=== PATIENT | male | born 1990 | race Caucasian/White ===

== ENCOUNTER 2018-08-23 12:12 | Emergency (ER) | payer BC, OTHER ==
[~2018-08-23] VITALS: Ht 180.3 cm; Wt 65.8 kg
[2018-08-23 12:33] VITALS: BP 145/82
[2018-08-23] MEDS ORDERED: LIDOCAINE 1%-EPI 1:100,000 20 ML VIAL ONE (12:39)
[2018-08-23] MEDS ORDERED: TDAP [DIPH/PERTUSSIS/TET] 0.5 ML VIAL IM ONE ×2 (13:00→13:16)
[2018-08-23] MEDS ORDERED: LIDOCAINE 1%-EPI 1:100,000 20 ML VIAL TP ONE (13:00)
== END 2018-08-23 13:25 | disposition home or self-care (01) ==
LOC: ER 12:12
DX: S01.81XA Laceration without foreign body of other part of head, initial encounter (principal); W22.8XXA Striking against or struck by other objects, initial encounter; Y93.89 Activity, other specified; Y92.89 Other specified places as the place of occurrence of the external cause; Y99.8 Other external cause status
CPT/HCPCS: 12011; 90471; 90715; 99283; A6402; J3490

== ENCOUNTER 2018-08-31 12:50 | Emergency (ER) | payer OTHER ==
[~2018-08-31] VITALS: Ht 180.3 cm; Wt 65.8 kg
[2018-08-31 13:20] VITALS: BP 126/80
== END 2018-08-31 13:59 | disposition home or self-care (01) ==
LOC: ER 12:50
DX: S01.81XD Laceration without foreign body of other part of head, subsequent encounter (principal); F17.200 Nicotine dependence, unspecified, uncomplicated; Z60.2 Problems related to living alone; W22.8XXD Striking against or struck by other objects, subsequent encounter
CPT/HCPCS: Z7502